=== PATIENT | female | born 2005 | race Two or more races ===

== ENCOUNTER 2025-05-15 11:19 | Emergency (ER) | payer OTHER ==
[~2025-05-15] VITALS: Ht 152.4 cm; Wt 63.5 kg
[2025-05-15] MEDS ORDERED: DEXTROSE 5 % AND 0.9 % NACL 1,000 ML IV SCH (11:45)
[2025-05-15] MEDS ORDERED: 0.9 % SODIUM CHLORIDE 1,000 ML IV SCH (11:45)
[2025-05-15] MEDS ORDERED: FAMOTIDINE/PF 20 MG/2 ML VIAL IV SCH (12:00)
[2025-05-15 12:16] LABS: BASO % 0.8 % (0.1-1.2); EOS # 0.13 (0.04-0.54); EOS % 1.7 % (0.7-7.0); LYMPH # 1.43 (1.18-3.74); LYMPH % 18.6 % (19.3-53.1); MEAN PLATELET VOLUME 9.20 fl (9.4-12.4); MONO # 0.52 (0.24-0.82); MONO % 6.8 % (4.7-12.5); NEUT # 5.52 (1.56-6.13); NEUT % 71.8 % (34.0-71.1); RED CELL DISTRIBUTION WIDTH 13.0 % (11.6-14.4)
[2025-05-15] MEDS ORDERED: ONDANSETRON HCL 8 MG in 0.9 % SODIUM CHLORIDE 50 ML IV SCH (13:00)
[2025-05-15 13:07] LABS: ALT/SGPT 31.0 U/L (12-78); AST/SGOT 39.0 U/L (15-37); BILIRUBIN TOTAL 0.81 mg/dL (0.3-1.2); BUN CREA RATIO 15.0 (7.0-25.0); CREATININE SERUM 0.79 mg/dL (0.55-1.02); GFR 92.78; GLOBULINA 3.6 G/DL (2.4-3.5); GLUCOSE FASTING 85.0 mg/dL (65-100); LDH 202.0 U/L (84-246); OSMOLALITY SERUM 282.0 MOSM/KG (275-295); TSH 0.65 uIU/mL (0.358-3.74)
[2025-05-15 13:10] LABS: PHOSPHOKINASE CREATININE 1305.0 U/L (26-192)
[2025-05-15] MEDS ORDERED: ONDANSETRON HCL 2 MG/ML VIAL ONE (13:22)
[2025-05-15] MEDS ORDERED: FAMOTIDINE/PF 20 MG/2 ML VIAL ONE (13:22)
[2025-05-15 13:44] LABS: URINE APPEARANCE Clear; URINE BILIRRUBIN Negative (NEGATIVE); URINE BLOOD Negative; URINE COLOR Yellow; URINE GLUCOSE Negative (NEGATIVE); URINE KETONE Trace (NEGATIVE); URINE LEUKOCYTE Negative; URINE NITRATE Negative; URINE PROTEIN Negative (NEGATIVE); URINE UROBILINOGEN 0.2 E.U./dl
[2025-05-15 13:47] LABS: URINE BACTERIA 554.2 uL (0.0-1933); URINE EPITHELIAL CELLS 39.8 uL (0.0-38.8); URINE WBC 8.3 uL (0.0-23.2)
[2025-05-15 13:53] LABS: URINE CAST 0.00 uL (0.0-1.40); URINE RBC 0.5 uL (0.0-20.8)
[2025-05-15 15:43] VITALS: BP 101/67; O2SAT 98
== END 2025-05-15 17:15 | disposition home or self-care (01) ==
LOC: EMR PED 11:19 → ER 11:19 → EMR PED 12:39
PROVIDERS: Emergency Medicine Pediatric Emergency Medicine
DX: R51.9 Headache, unspecified (principal); R42 Dizziness and giddiness